=== PATIENT | male | born 1985 ===

== ENCOUNTER 2018-03-18 12:30 | Inpatient (IN) | payer OTHER ==
[~2018-03-18] VITALS: Ht 170.2 cm; Wt 113.4 kg
[2018-03-24] MEDS ORDERED: INTESTINEX680 M1 PO (09:16)
[2018-03-24] MEDS ORDERED: BACTRIM 400-801 EACH PO (09:16)
[2018-03-24] MEDS ORDERED: CLOTRIMAZOLE15 GM TOP (09:16)
== END 2018-03-24 12:29 | disposition home or self-care (01) | DRG 603 ==
LOC: ER 12:30 → MEDJ 03-19 10:28
DX: L03.116 Cellulitis of left lower limb (principal); B35.3 Tinea pedis; E66.8 Other obesity; D64.89 Other specified anemias